=== PATIENT | female | born 1980 | race Caucasian/White ===

== ENCOUNTER 2018-04-14 17:19 | Inpatient (IN) | payer BC ==
[~2018-04-14] VITALS: Ht 174 cm; Wt 93.0 kg
[2018-04-14 22:48] LABS: BASOPHILS % 0.9 % (0.0-2.0); EOSINOPHILS % 0.4 % (0.0-5.0); HEMATOCRIT. 32.3 % (36.0-48.0); HEMOGLOBIN. 10.5 g/dL (12.0-16.0); LYMPHOCYTES % 24.1 % (20.0-50.0); MEAN CORPUSCULAR HEMOGLOBIN 23.8 pg (28.0-32.0); MEAN CORPUSCULAR VOLUME 72.9 fL (81.0-99.0); MEAN PLATELET VOLUME 7.5 fl (7.4-10.4); MONOCYTES % 7.5 % (2.0-8.0); NEUTROPHILS % 67.1 % (40.0-76.0); PLATELET 354 x1000/uL (130-400); RED BLOOD CELL COUNT 4.42 mill/uL (4.2-5.4); RED CELL DISTRIBUTION WIDTH 21.7 % (11.6-14.6)
[2018-04-14 22:53] LABS: CHLORIDE 102 mEq/L (98-107)
[2018-04-14 22:55] LABS: HCG SCREEN NEGATIVE
[2018-04-14] MEDS ORDERED: HYDROCODONE/ACETAMINOPHEN 5/325MG TABLET PO ONE (23:15)
[2018-04-15] VITALS (8 sets, daily range): BP systolic 154–187; BP diastolic 93–108
[2018-04-15] MEDS ORDERED: HEPARIN 25,000 UNITS PREMIX 500 ML IV ONE (01:15)
[2018-04-15] MEDS ORDERED: HEPARIN 5000 UNITS/ML VIAL IV ONE (01:15)
[2018-04-15] MEDS ORDERED: ACETAMINOPHEN 325MG TABLET PO PRN (01:30)
[2018-04-15] MEDS ORDERED: ENOXAPARIN 40MG/0.4ML SYR SUBCUT SCH (01:30)
[2018-04-15] MEDS ORDERED: MORPHINE SULFATE 2 MG/ML CPJ (NOT FOR IM USE) IV PRN (01:30)
[2018-04-15] MEDS ORDERED: DOCUSATE SODIUM 100MG CAPSULE PO PRN (01:30)
[2018-04-15] MEDS ORDERED: HYDROCODONE/ACETAMINOPHEN 5/325MG TABLET PO ONE (03:00)
[2018-04-15] MEDS: MAGNESIUM/ALUMINUM HYDROXIDE/SIMETHICONE 30ML UDC PO PRN (08:27)
[2018-04-15] MEDS: HYDROCODONE/ACETAMINOPHEN 5/325MG TABLET PO PRN ×4 (08:51→23:14)
[2018-04-15] MEDS ORDERED: NA PHOS,M-B/NA PHOS,DI-BA ENEMA 118ML PR PRN (09:00)
[2018-04-15] MEDS ORDERED: IOHEXOL-350 100 ML BOTTLE ONE (09:27)
[2018-04-15] MEDS ORDERED: ENOXAPARIN 100MG/ML SYR SUBCUT SCH (09:45)
[2018-04-15] MEDS ORDERED: ENOXAPARIN 100MG/ML SYR SUBCUT ONE (10:00)
[2018-04-15] MEDS: ASPIRIN 81MG EC TABLET PO SCH (12:10)
[2018-04-15] MEDS ORDERED: PROT40 MT (12:25)
[2018-04-15] MEDS ORDERED: METO100T16 MT (12:25)
[2018-04-15] MEDS ORDERED: LISI-604 MT (12:25)
[2018-04-15] MEDS ORDERED: INSU100I28 SQ (12:25)
[2018-04-15] MEDS ORDERED: AMLO5TAB4 MT (12:25)
[2018-04-15] MEDS ORDERED: OXYC-662 MT (12:34)
[2018-04-15] MEDS ORDERED: PREG100C MT (12:34)
[2018-04-15] MEDS ORDERED: METF-416 MT (12:34)
[2018-04-15] MEDS ORDERED: GABA-533 MT (12:34)
[2018-04-15] MEDS ORDERED: ETOD400T2 MT (12:34)
[2018-04-15] MEDS ORDERED: INSLIS SUBCUT (12:34)
[2018-04-15] MEDS: CLONIDINE 0.1MG TABLET PO PRN ×2 (12:39→18:59)
[2018-04-15] MEDS: ONDANSETRON HCL 4MG/2ML INJ IV PRN (15:16)
[2018-04-15] MEDS ORDERED: DEXTROSE 50% WATER 50ML SYRINGE IV PRN (16:30)
[2018-04-15] MEDS: BLOOD SUGAR DIAGNOSTIC STRIP TEST SCH ×2 (17:19→21:54)
[2018-04-15] MEDS: AMLODIPINE 10MG TABLET PO SCH (17:25)
[2018-04-15] MEDS: INSULIN LISPRO 100 UNITS/ML SUBCUT SCH ×2 (17:34→22:01)
[2018-04-15] MEDS: GUAIFENESIN 200MG/10ML SUGAR FREE UDC PO PRN ×2 (17:35→22:08)
[2018-04-15 20:17] LABS: PROTHROMBIN TIME 10.3 sec (9.1-11.1)
[2018-04-15] MEDS: IPRATROPIUM/ALBUTEROL 0.5-3(2.5)MG/3ML NEB INH PRN (20:32)
[2018-04-15] MEDS: DIPHENHYDRAMINE 50MG/ML VIAL IV PRN (21:53)
[2018-04-15] MEDS: ENOXAPARIN 100MG/ML SYR SUBCUT SCH (21:54)
[2018-04-15] MEDS: METOPROLOL TARTRATE 50MG TABLET PO SCH (21:55)
[2018-04-16] VITALS (12 sets, daily range): BP systolic 137–168; BP diastolic 78–105
[2018-04-16] MEDS: IPRATROPIUM/ALBUTEROL 0.5-3(2.5)MG/3ML NEB INH PRN ×4 (00:44→16:12)
[2018-04-16] MEDS: HYDROCODONE/ACETAMINOPHEN 5/325MG TABLET PO PRN ×4 (05:16→18:54)
[2018-04-16 07:55] LABS: BASOPHILS % 0.8 % (0.0-2.0); EOSINOPHILS % 0.1 % (0.0-5.0); HEMATOCRIT. 32.9 % (36.0-48.0); HEMOGLOBIN. 10.6 g/dL (12.0-16.0); MEAN CORPUSCULAR HEMOGLOBIN 23.5 pg (28.0-32.0); MEAN CORPUSCULAR VOLUME 72.9 fL (81.0-99.0); MEAN PLATELET VOLUME 7.5 fl (7.4-10.4); NEUTROPHILS % 73.1 % (40.0-76.0); PLATELET 381 x1000/uL (130-400); RED BLOOD CELL COUNT 4.51 mill/uL (4.2-5.4); RED CELL DISTRIBUTION WIDTH 21.6 % (11.6-14.6)
[2018-04-16] MEDS: BLOOD SUGAR DIAGNOSTIC STRIP TEST SCH ×4 (07:56→21:02)
[2018-04-16] MEDS: INSULIN LISPRO 100 UNITS/ML SUBCUT SCH ×4 (09:01→21:16)
[2018-04-16 09:09] LABS: CHLORIDE 106 mEq/L (98-107)
[2018-04-16] MEDS: ASPIRIN 81MG EC TABLET PO SCH (09:17)
[2018-04-16] MEDS: METOPROLOL TARTRATE 50MG TABLET PO SCH ×2 (09:17→20:53)
[2018-04-16] MEDS: AMLODIPINE 10MG TABLET PO SCH (09:17)
[2018-04-16] MEDS: ENOXAPARIN 100MG/ML SYR SUBCUT SCH ×2 (09:18→20:53)
[2018-04-16] MEDS: GUAIFENESIN 200MG/10ML SUGAR FREE UDC PO PRN ×3 (09:18→18:53)
[2018-04-16 09:19] LABS: LDL CHOLESTEROL 175 mg/dL (5-100)
[2018-04-16 09:21] LABS: HDL CHOLESTEROL 41 mg/dL (40-59); T4 FREE 1.05 ng/dL (0.76-1.46)
[2018-04-16] MEDS: PANTOPRAZOLE 40MG DR TABLET PO SCH (12:11)
[2018-04-16] MEDS: GABAPENTIN 400MG CAPSULE PO SCH ×2 (14:09→21:03)
[2018-04-16] MEDS: DIPHENHYDRAMINE 50MG/ML VIAL IV PRN (20:53)
[2018-04-16] MEDS: ONDANSETRON HCL 4MG/2ML INJ IV PRN (21:32)
[2018-04-16] MEDS: LORAZEPAM 2MG/ML CPJ IV PRN (21:32)
[2018-04-16] MEDS: MAGNESIUM/ALUMINUM HYDROXIDE/SIMETHICONE 30ML UDC PO PRN (21:32)
[2018-04-17] VITALS (12 sets, daily range): BP systolic 138–167; BP diastolic 72–99
[2018-04-17] MEDS: GABAPENTIN 400MG CAPSULE PO SCH ×3 (06:18→21:28)
[2018-04-17] MEDS: PANTOPRAZOLE 40MG DR TABLET PO SCH (06:18)
[2018-04-17] MEDS: HYDROCODONE/ACETAMINOPHEN 5/325MG TABLET PO PRN ×4 (06:46→18:57)
[2018-04-17] MEDS: BLOOD SUGAR DIAGNOSTIC STRIP TEST SCH ×4 (07:45→20:34)
[2018-04-17] MEDS: IPRATROPIUM/ALBUTEROL 0.5-3(2.5)MG/3ML NEB INH PRN ×3 (07:49→15:23)
[2018-04-17] MEDS: AMLODIPINE 10MG TABLET PO SCH (08:30)
[2018-04-17] MEDS: METOPROLOL TARTRATE 50MG TABLET PO SCH ×2 (08:30→20:33)
[2018-04-17] MEDS: ASPIRIN 81MG EC TABLET PO SCH (08:31)
[2018-04-17] MEDS: ENOXAPARIN 100MG/ML SYR SUBCUT SCH ×2 (08:32→20:34)
[2018-04-17] MEDS: INSULIN LISPRO 100 UNITS/ML SUBCUT SCH ×4 (08:33→20:32)
[2018-04-17] MEDS: GUAIFENESIN 200MG/10ML SUGAR FREE UDC PO PRN ×4 (08:38→18:54)
[2018-04-17] MEDS: ONDANSETRON HCL 4MG/2ML INJ IV PRN ×2 (10:10→16:36)
[2018-04-17] MEDS: NEOMY SULF/BACITRAC ZN/POLY OINT 28GM TOP SCH (12:42)
[2018-04-17] MEDS ORDERED: MONTELUKAST SODIUM 10MG TABLET PO SCH (17:00)
[2018-04-17] MEDS: LORAZEPAM 2MG/ML CPJ IV PRN (20:49)
[2018-04-17] MEDS: IPRATROPIUM/ALBUTEROL 0.5-3(2.5)MG/3ML NEB HHN SCH (21:03)
[2018-04-17] MEDS ORDERED: INSULIN GLARGINE UD 100 UNITS/ML SYR SUBCUT SCH (22:00)
[2018-04-18] VITALS (8 sets, daily range): BP systolic 124–151; BP diastolic 74–98
[2018-04-18] MEDS: HYDROCODONE/ACETAMINOPHEN 5/325MG TABLET PO PRN ×3 (01:46→12:27)
[2018-04-18] MEDS: GUAIFENESIN 200MG/10ML SUGAR FREE UDC PO PRN ×3 (01:46→14:20)
[2018-04-18] MEDS: DIPHENHYDRAMINE 50MG/ML VIAL IV PRN ×2 (02:07→09:02)
[2018-04-18] MEDS: IPRATROPIUM/ALBUTEROL 0.5-3(2.5)MG/3ML NEB HHN SCH ×3 (03:58→14:24)
[2018-04-18] MEDS: GABAPENTIN 400MG CAPSULE PO SCH ×2 (06:46→14:20)
[2018-04-18] MEDS: PANTOPRAZOLE 40MG DR TABLET PO SCH (06:46)
[2018-04-18] MEDS: BLOOD SUGAR DIAGNOSTIC STRIP TEST SCH ×2 (08:24→12:05)
[2018-04-18] MEDS: ASPIRIN 81MG EC TABLET PO SCH (08:47)
[2018-04-18] MEDS: METOPROLOL TARTRATE 50MG TABLET PO SCH (08:49)
[2018-04-18] MEDS: AMLODIPINE 10MG TABLET PO SCH (08:49)
[2018-04-18] MEDS: ENOXAPARIN 100MG/ML SYR SUBCUT SCH (08:51)
[2018-04-18] MEDS: INSULIN LISPRO 100 UNITS/ML SUBCUT SCH ×2 (08:53→12:20)
[2018-04-18] MEDS: ONDANSETRON HCL 4MG/2ML INJ IV PRN (09:01)
[2018-04-18] MEDS: NEOMY SULF/BACITRAC ZN/POLY OINT 28GM TOP SCH (09:16)
[2018-04-18] MEDS ORDERED: BUDESONIDE 0.5MG/2ML NEB HHN SCH (11:30)
[2018-04-18] MEDS ORDERED: LORAZEPAM 0.5MG TABLET PO PRN (11:30)
[2018-04-18] MEDS ORDERED: BUPROPION HCL 75MG TABLET PO SCH ×2 (13:00→21:00)
[2018-04-19 13:12] LABS: ANTI-THROMBIN ACTIVITY 129 % (75-135); PROTEIN C FUNCTIONAL 139 % (73-180)
== END 2018-04-18 16:00 | disposition home or self-care (01) | DRG 176 ==
LOC: ER 17:19 → EDBEDREQDT 04-15 01:03 → EDBEDREQ 04-15 01:03 → EDBEDREQTM 04-15 01:03 → EDBEDREQSVC 04-15 09:47 → EDBEDREQTM 04-15 09:47 → EDBEDREQ 04-15 09:47 → ENRESERV 04-15 10:24 → 5EST 04-15 11:47
PROVIDERS: ADMIT Internal Medicine; ATTEND Internal Medicine
DX: I26.99 Other pulmonary embolism without acute cor pulmonale (principal); D68.59 Other primary thrombophilia; E11.42 Type 2 diabetes mellitus with diabetic polyneuropathy; F17.210 Nicotine dependence, cigarettes, uncomplicated; F12.90 Cannabis use, unspecified, uncomplicated; I50.9 Heart failure, unspecified; I11.0 Hypertensive heart disease with heart failure; I25.10 Atherosclerotic heart disease of native coronary artery without angina pectoris; K80.20 Calculus of gallbladder without cholecystitis without obstruction; E78.5 Hyperlipidemia, unspecified; R61 Generalized hyperhidrosis; F41.9 Anxiety disorder, unspecified; G89.29 Other chronic pain; F32.9 Major depressive disorder, single episode, unspecified; M54.5 Low back pain; M79.662 Pain in left lower leg; M79.661 Pain in right lower leg; B35.1 Tinea unguium; S90.422A Blister (nonthermal), left great toe, initial encounter; X58.XXXA Exposure to other specified factors, initial encounter; Y93.89 Activity, other specified; Y92.89 Other specified places as the place of occurrence of the external cause; Y99.8 Other external cause status; Z59.0 Homelessness; Z80.3 Family history of malignant neoplasm of breast; Z82.49 Family history of ischemic heart disease and other diseases of the circulatory system; Z86.711 Personal history of pulmonary embolism; Z83.3 Family history of diabetes mellitus; Z88.0 Allergy status to penicillin; Z86.718 Personal history of other venous thrombosis and embolism; Z71.6 Tobacco abuse counseling
CPT/HCPCS: 36415; 71275; 76700; 80061; 80076; 81403; 81407; 81479; 82962; 83880; 84439; 84443; 84484; 84703; 85300; 85303; 85306; 85379; 93005; 93306; 93970; 94640; 96372; 96374; 99285; J1200; J1650; J1815; J2060; J2405; J7620; Q9967